=== PATIENT | female | born 1995 | race Caucasian/White ===

== ENCOUNTER 2019-02-14 03:44 | Emergency (ER) | payer OTHER ==
[~2019-02-14] VITALS: Ht 175.3 cm; Wt 87.1 kg
[2019-02-14] MEDS ORDERED: IBUPROFEN 800800 M1 PO (03:53)
[2019-02-14] MEDS ORDERED: VITAFOL-OB+DHA1 EACH PO (03:54)
[2019-02-14] MEDS ORDERED: TRAMADOL 50 MG50 MG PO (04:29)
[2019-02-14 05:10] VITALS: BP 95/51
== END 2019-02-14 05:13 | disposition home or self-care (01) ==
LOC: M.ERS 03:44
DX: S90.31XA Contusion of right foot, initial encounter (principal); F17.210 Nicotine dependence, cigarettes, uncomplicated; E11.9 Type 2 diabetes mellitus without complications; W22.8XXA Striking against or struck by other objects, initial encounter; Y92.89 Other specified places as the place of occurrence of the external cause; Y99.0 Civilian activity done for income or pay; Y99.8 Other external cause status

== ENCOUNTER 2019-02-28 16:14 | Emergency (ER) | payer OTHER ==
[~2019-02-28] VITALS: Ht 175.3 cm; Wt 89.4 kg
[~2019-02-28 16:14] MED LIST: IBUPROFEN 800800 M1 PO; TRAMADOL 50 MG50 MG PO; VITAFOL-OB+DHA1 EACH PO
[2019-02-28 16:20] VITALS: BP 130/76
== END 2019-02-28 17:19 | disposition home or self-care (01) ==
LOC: M.ERS 16:14
DX: O26.892 Other specified pregnancy related conditions, second trimester (principal); S90.31XA Contusion of right foot, initial encounter; E11.9 Type 2 diabetes mellitus without complications; F17.210 Nicotine dependence, cigarettes, uncomplicated; Z3A.22 22 weeks gestation of pregnancy; X58.XXXA Exposure to other specified factors, initial encounter; Y93.89 Activity, other specified; Y92.89 Other specified places as the place of occurrence of the external cause; Y99.8 Other external cause status